=== PATIENT | male | born 1955 | race Caucasian/White ===

== ENCOUNTER 2021-10-26 10:22 | Emergency (ER) | payer MEDICAID, MEDICARE ==
[~2021-10-26] VITALS: Ht 170.2 cm; Wt 81.8 kg
[2021-10-26] MEDS ORDERED: IBUP-2070 PO (13:30)
[2021-10-26 13:36] VITALS: BP 123/69
== END 2021-10-26 13:52 | disposition home or self-care (01) ==
LOC: EMS 10:26
DX: M76.891 Other specified enthesopathies of right lower limb, excluding foot (principal); I10 Essential (primary) hypertension; F17.210 Nicotine dependence, cigarettes, uncomplicated
CPT/HCPCS: 99283